=== PATIENT | male | born 2000 | race Caucasian/White ===

== ENCOUNTER 2023-01-20 20:20 | Emergency (ER) | payer BC ==
[~2023-01-20] VITALS: Ht 182.9 cm; Wt 77.3 kg
[2023-01-20 20:26] VITALS: TEMP 99.2
[2023-01-20 21:37] VITALS: BP 125/81; PULSE 80
== END 2023-01-20 21:43 | disposition home or self-care (01) ==
LOC: COL.ER 20:20
DX: S63.282A Dislocation of proximal interphalangeal joint of right middle finger, initial encounter (principal); W50.0XXA Accidental hit or strike by another person, initial encounter; Y93.67 Activity, basketball; Y92.310 Basketball court as the place of occurrence of the external cause